=== PATIENT | female | born 1990 | race Caucasian/White ===

== ENCOUNTER 2017-01-07 02:20 | Emergency (ER) | payer MEDICAID, OTHER ==
--- NOTE | 2017-01-07 02:36 | C.PDOC ---
History Of Present Illness 26 year old female presents to the ED with complaints of abdominal cramping and vaginal bleeding. Patient states she has irregular menses however this is very painful and she has soaked 4-5 pads in the past 2 hours. She notes she feels lightheaded and dizzy and denies chest pain, palpitations, fever, or any other complaints at this time. Time Seen by Provider: 01/07/17 02:36 History Per: Patient History/Exam Limitations: no limitations Onset/Duration Of Symptoms: Days Current Symptoms Are (Timing): Still Present Severity: Moderate Quality Of Discomfort: Cramping Associated Symptoms: denies: Fever, Diarrhea Abnormal Vaginal Bleeding: Yes Past Medical History Reviewed: Historical Data, Nursing Documentation, Vital Signs Vital Signs: Last Vital Signs Temp 97.5 F L 01/07/17 05:17 Pulse 92 H 01/07/17 05:17 Resp 18 01/07/17 05:17 BP 141/87 01/07/17 05:17 Pulse Ox 99 01/07/17 05:17 - Medical History PMH: Bronchitis Family History: States: Unknown Family Hx - Social History Hx Tobacco Use: No Hx Alcohol Use: No Hx Substance Use: No - Immunization History Hx Tetanus Toxoid Vaccination: No Hx Influenza Vaccination: No Hx Pneumococcal Vaccination: No Review Of Systems Constitutional: Negative for: Fever, Chills Cardiovascular: Positive for: Light Headedness. Negative for: Chest Pain, Palpitations Gastrointestinal: Positive for: Abdominal Pain. Negative for: Nausea, Vomiting Genitourinary: Positive for: Vaginal Bleeding. Negative for: Dysuria, Frequency Musculoskeletal: Negative for: Back Pain Neurological: Positive for: Dizziness. Negative for: Weakness, Numbness Physical Exam - Physical Exam Appears: Non-toxic, No Acute Distress Skin: Warm, Dry Head: Atraumatic, Normacephalic Eye(s): bilateral: Normal Inspection Oral Mucosa: Moist Neck: Supple Chest: Symmetrical Cardiovascular: Rhythm Regular Respiratory: No Accessory Muscle Use, No Rales, No Rhonchi, No Wheezing Gastrointestinal/Abdominal: Soft, Tenderness (+Diffuse tenderness), No Distention, No Guarding, No Rebound, Other (+Morbidly obese) Extremity: Normal ROM Neurological/Psych: Oriented x3, Normal Speech, Normal Cognition ED Course And Treatment - Laboratory Results Result Diagrams: 01/07/17 03:24 01/07/17 03:24 O2 Sat by Pulse Oximetry: 100 (Room air) Pulse Ox Interpretation: Normal Progress Note: Blood work and Urinalysis ordered and reviewed. patient treated with Morphine, Zofran, Rocephine, and IV fluids. Disposition Counseled Patient/Family Regarding: Studies Performed, Diagnosis - Disposition Disposition Time: 02:36 Condition: UNKNOWN - Clinical Impression Clinical Impression: Menorrhagia with irregular cycle - Scribe Statement The provider has reviewed the documentation as recorded by the Scribe Kristina Lynch. Provider Attestation: All medical record entries made by the Scribe were at my direction and personally dictated by me. I have reviewed the chart and agree that the record accurately reflects my personal performance of the history, physical exam, medical decision making, and the department course for this patient. I have also personally directed, reviewed, and agree with the discharge instructions and disposition. Physician Patient Turnover Patient Signed Over To: Nicki Murphy Handoff Comments: pending pelvic US and disposition
[2017-01-07 02:41] VITALS: BMI 47.2
[2017-01-07] MEDS ORDERED: Sodium Chloride 0.9% 1,000 ML IV ONE (02:41)
[2017-01-07 02:58] LABS: URINE BILIRUBIN NEGATIVE (NEGATIVE); URINE BLOOD 3+ (NEGATIVE); URINE GLUCOSE (UA) 1+ mg/dL (Normal); URINE KETONE TRACE mg/dL (NEGATIVE); URINE LEUKOCYTE ESTERASE NEG Leu/uL (Negative); URINE PROTEIN 2+ mg/dL (NEGATIVE); URINE UROBILINOGEN NORMAL mg/dL (0.2-1.0)
[2017-01-07 03:02] LABS: URINE COLOR RED (YELLOW)
[2017-01-07 03:03] LABS: RBC URINE 5650 /hpf (0-3)
[2017-01-07 03:04] LABS: WBC URINE 25 /hpf (0-5)
[2017-01-07] MEDS ORDERED: cefTRIAXone IV 1 gm in Dextros 50 ML IVPB ONE ×2 (03:04→03:36)
[2017-01-07 03:27] LABS: BASO # 0.1 K/uL (0.0-0.2); BASO % 0.6 % (0.0-2.0); EOS # 0.3 K/uL (0.0-0.7); EOS % 2.1 % (0.0-4.0); HEMATOCRIT 31.7 % (34.0-47.0); LYMPH # 2.2 K/uL (1.0-4.3); LYMPH % 18.3 % (20.0-40.0); MEAN CELL VOLUME 75.6 fL (81.0-99.0); MEAN CORPUSCULAR HEMOGLOBIN 23.9 pg (27.0-31.0); MEAN CORPUSCULAR HGB CONC 31.6 g/dL (33.0-37.0); MEAN PLATELET VOLUME 8.6 fL (7.2-11.7); MONO # 0.6 K/uL (0.0-0.8); MONO % 4.5 % (0.0-10.0); NRBC % 0.1 % (0.0-2.0); RED CELL DISTRIBUTION WIDTH 16.5 % (11.5-14.5); WHITE BLOOD COUNT 12.3 K/uL (4.8-10.8)
[2017-01-07] MEDS ORDERED: Sodium Chloride 0.9% 1,000 ML ONE (03:36)
[2017-01-07] MEDS ORDERED: Morphine 4 MG/ML VIAL ONE (03:36)
[2017-01-07 03:37] LABS: CHLORIDE 104 mmol/L (98-107)
[2017-01-07 03:38] LABS: POTASSIUM 3.7 mmol/L (3.6-5.2); SODIUM 143 mmol/L (132-148)
[2017-01-07 03:40] LABS: ALB/GLOB RATIO 1.4 (1.0-2.1); ALKALINE PHOSPHATASE 87 U/L (38-126); ALT/SGPT 31 U/L (9-52); AST/SGOT 19 U/L (14-36); BILIRUBIN,TOTAL 0.4 mg/dL (0.2-1.3); BLOOD UREA NITROGEN 11 mg/dL (7-17); CARBON DIOXIDE 24 mmol/L (22-30); GFR AFRICAN-AMERICAN > 60; GLUCOSE,RANDOM 168 mg/dL (65-105); TOTAL PROTEIN 7.8 g/dL (6.3-8.3)
[2017-01-07 03:41] LABS: CALCIUM 8.9 mg/dl (8.6-10.4)
[2017-01-07] MEDS ORDERED: HYDROmorphone 1 mg/ml ISec IVP STA (04:57)
[2017-01-07 08:25] VITALS: BP 139/87; PULSE 68; RESP 17; TEMP 98.2; O2SAT 99
--- NOTE | 2017-01-07 13:26 | US ---
Pelvic ultrasound History: Menometrorrhagia. Comparison: None available. Technique: Real-time sonography was performed through the pelvis utilizing transabdominal and transvaginal techniques. Findings: Uterus: 7.3 x 3.9 x 4.5 centimeters. Anteverted. Heterogeneous echotexture. Nabothian cysts noted at the level of the cervix. Endometrium measures 7 millimeters. Cervix measures 2.9 centimeters. No free fluid in the pelvic cul-de-sac. Right ovary: Not well visualized. Left ovary: 2.4 x 1.3 x 2.5 centimeters. Normal flow. Impression: Endometrium measures 7 millimeters. Right ovary not well visualized. Limited study secondary to patient body habitus. These findings were preliminarily reported at 7:01 a.m. on 01/07/[address] Jose Burns from [employer].
== END 2017-01-07 08:23 | disposition home or self-care (01) ==
LOC: C.ER 02:20
DX: N39.0 Urinary tract infection, site not specified (principal); N92.1 Excessive and frequent menstruation with irregular cycle
CPT/HCPCS: 76830; 76856; 80053; 81001; 84702; 85025; 85610; 85730; 86850; 86900; 96361; 96374; 96375; 96376; 99285; J0696; J1170; J1885; J2270; J2405; J2765; J7040